=== PATIENT | male | born 1965 | race Two or more races ===

== ENCOUNTER 2021-03-01 20:40 | Inpatient (IN) | payer BC ==
[~2021-03-01] VITALS: Ht 160 cm; Wt 87.8 kg
[2021-03-01 20:50] VITALS: BP 104/61
[2021-03-01] MEDS ORDERED: NOREPINEPHRINE 8 MG/250ML KIT 250 ML IV ONE (20:52)
[2021-03-01] MEDS ORDERED: PROPOFOL 100 ML IV ONE (21:14)
[2021-03-01] MEDS: PROPOFOL 100 ML IV SCH (21:15)
[2021-03-01] MEDS ORDERED: LIDOCAINE 2%HCL (LOCAL ANESTH.) INJ 20ML MDV ONE (21:38)
[2021-03-01 21:55] VITALS: BP 105/62
[2021-03-01] MEDS ORDERED: ATROPINE SULF 1 MG/10ml SYR ONE (22:00)
[2021-03-01] MEDS ORDERED: ANGIOMAX 250 MG VIAL IV ONE (22:01)
[2021-03-01] MEDS ORDERED: EPINEPHrine HCL 1 MG/10 ML SYRG ONE (22:01)
[2021-03-01] MEDS ORDERED: niCARdipine 25 MG/10 ML VIAL IV ONE (22:01)
[2021-03-01] MEDS ORDERED: SODIUM CHL 0.9% 50 ML ONE (22:01)
[2021-03-01] MEDS ORDERED: IOHEXOL 350 MG/ML 100ML IJ ONE ×2 (22:14→22:53)
[2021-03-01 22:22] LABS: Basophils # (auto) 0.1 10 ^3/uL (0-0.2); Basophils % (auto) 0.6 % (0.0-2.0); Eosinophils # (auto) 0.2 10 ^3/uL (0-0.8); Eosinophils % (auto) 1.6 % (0.0-7.0); Hematocrit 47.5 % (41.0-53.0); Hemoglobin 14.7 g/dL (13.5-17.5); Lymphocytes # (auto) 6.4 10 ^3/uL (0.4-5.4); Lymphocytes % (auto) 53.6 % (10.0-50.0); Mean Corpuscular Hemoglobin 29.9 pg (28.0-32.0); Mean Corpuscular Hgb Conc. 30.9 g/dL (32.0-36.0); Mean Corpuscular Volume 96.8 fL (80.0-100.0); Monocytes # (auto) 0.6 10 ^3/uL (0-1.3); Monocytes % (auto) 5.3 % (0.0-12.0); Neutrophils # (auto) 4.6 10 ^3/uL (1.6-8.6); Neutrophils % (auto) 38.9 % (37.0-80.0); Nucleated Red Blood Cells % 0.3 %; Platelet Count (auto) 120 10^3/uL (140-450); Red Blood Cells 4.91 10^6/uL (4.5-5.90); Red Cell Distribution Width 15.3 % (11.8-14.3); White Blood Cell 11.9 10^3/uL (4.4-10.8)
[2021-03-01 22:29] LABS: Albumin 2.6 g/dL (3.4-5.0); BUN/Creatinine Ratio 10.8; Calcium 7.5 mg/dL (8.5-10.1); Potassium 3.9 mmol/L (3.5-5.1)
[2021-03-01 22:34] LABS: Bilirubin, Total 0.6 mg/dL (0.2-1.0); Total Protein 5.2 g/dL (6.4-8.2)
[2021-03-01 22:43] LABS: Lactic Acid w/Reflex 21.7 mmol/L (0.4-2.0)
[2021-03-01] MEDS ORDERED: fentaNYL Drip 2500mCg/250mlNS 250 ML IV ONE (22:50)
[2021-03-01 23:01] LABS: INR 1.46 (0.9-1.15)
[2021-03-01] MEDS ORDERED: TICAGRELOR 90 MG TAB ONE (23:12)
[2021-03-01] MEDS ORDERED: ASPirin 325 MG TAB ONE (23:12)
[2021-03-02] VITALS (101 sets, daily range): BP systolic 85–119; BP diastolic 51–75
[2021-03-02] MEDS ORDERED: SODIUM CHLORIDE 0.9% 1,000 ML IV ONE (00:15)
[2021-03-02] MEDS ORDERED: MORPHINE SULF INJ 2 MG/ML SYRINGE 1ML IV PRN (00:15)
[2021-03-02] MEDS: MIDAZOLAM DRIP 50 mg/50mL 50 ML IV SCH (00:15)
[2021-03-02] MEDS ORDERED: NITROGLYCERIN 0.4 MG SL TAB SL PRN (00:15)
[2021-03-02] MEDS: ASPirin-EC 81 mg tab PO SCH ×2 (01:01→10:11)
[2021-03-02] MEDS: MEROPENEM 1GM IVPB 100 ML IV SCH ×2 (01:01→10:11)
[2021-03-02] MEDS: NOREPINEPHRINE 8 MG/250ML KIT 250 ML IV SCH ×3 (01:02→21:00)
[2021-03-02] MEDS: PROPOFOL 100 ML IV SCH ×4 (01:06→17:58)
[2021-03-02] MEDS: fentaNYL Drip 2500mCg/250mlNS 250 ML IV SCH (01:08)
[2021-03-02 08:21] LABS: Basophils # (auto) 0 10 ^3/uL (0-0.2); Basophils % (auto) 0.1 % (0.0-2.0); Eosinophils # (auto) 0 10 ^3/uL (0-0.8); Hematocrit 48.6 % (41.0-53.0); Hemoglobin 16.3 g/dL (13.5-17.5); Lymphocytes # (auto) 0.7 10 ^3/uL (0.4-5.4); Lymphocytes % (auto) 4.9 % (10.0-50.0); Mean Corpuscular Hemoglobin 29.1 pg (28.0-32.0); Mean Corpuscular Hgb Conc. 33.5 g/dL (32.0-36.0); Mean Corpuscular Volume 87.1 fL (80.0-100.0); Monocytes # (auto) 1.3 10 ^3/uL (0-1.3); Monocytes % (auto) 8.5 % (0.0-12.0); Neutrophils % (auto) 86.5 % (37.0-80.0); Nucleated Red Blood Cells % 0.1 %; Platelet Count (auto) 219 10^3/uL (140-450); Red Blood Cells 5.59 10^6/uL (4.5-5.90); Red Cell Distribution Width 14.2 % (11.8-14.3)
[2021-03-02 08:30] LABS: Urine Bacteria NONE SEEN /hpf (None Seen); Urine Blood 3+ /uL (Negative); Urine Budding Yeast OCCASIONAL /hpf (None Seen); Urine Mucus FEW (None Seen); Urine Specific Gravity 1.044 (1.001-1.035); Urine WBC 18 /hpf (0 - 3)
[2021-03-02 08:39] LABS: Albumin 2.9 g/dL (3.4-5.0); Calcium 7.1 mg/dL (8.5-10.1); Potassium 4.9 mmol/L (3.5-5.1)
[2021-03-02 08:42] LABS: Alcohol, Urine < 3.0 mg/dL (0-10); Amphetamine Screen, Urine NEGATIVE (NEGATIVE); Barbiturate Scree,Urine NEGATIVE (NEGATIVE); Benzodiazephine Screen, Urine NEGATIVE (NEGATIVE); Bilirubin, Total 0.4 mg/dL (0.2-1.0); Cannabinoid Screen, Urine NEGATIVE (NEGATIVE); Cocaine Screen, Urine NEGATIVE (NEGATIVE); Opiate Scree,Urine NEGATIVE (NEGATIVE); Phencyclidine Screen, Urine NEGATIVE (NEGATIVE); Total Protein 5.6 g/dL (6.4-8.2)
[2021-03-02 09:42] LABS: Cholesterol 153 mg/dL (< 200); HDL Cholesterol 38 mg/dL (40-59); LDL Cholesterol 97 mg/dL (< 100); Triglycerides 111 mg/dL (< 150)
[2021-03-02] MEDS ORDERED: OPTISON 3ml Vial for INJ IV ONE (09:44)
[2021-03-02] MEDS ORDERED: PANTOPRAZOLE 40 MG/10 ML VIAL INJ IV SCH (10:00)
[2021-03-02] MEDS ORDERED: ENOXAPARIN SOD 40 MG/0.4 ML SYRINGE SC SCH (10:00)
[2021-03-02] MEDS: TICAGRELOR 90 MG TAB GT SCH ×2 (10:11→21:29)
[2021-03-02] MEDS ORDERED: SODIUM BICARBONATE 8.4 % INJ 50ML VIAL IV ONE (10:30)
[2021-03-02] MEDS ORDERED: LEV100T PO (10:38)
[2021-03-02] MEDS ORDERED: EPINEPHrine HCL 1 MG/10 ML SYRG IV ONE (12:42)
[2021-03-02] MEDS ORDERED: SODIUM BICARBONATE 8.4% INJ 50ML SYRINGE IV ONE (12:42)
[2021-03-02] MEDS ORDERED: Jevity 1.2 Cal/Fiber 1 Liter GT SCH (12:45)
[2021-03-02 15:58] LABS: Free T3 2.73 pg/mL (2.3-4.2); Free T4 (Free Thyroxine) 1.5 ng/dL (0.89-1.76)
[2021-03-02] MEDS: SODIUM CHLORIDE 0.9% 1,000 ML IV SCH (17:22)
[2021-03-02] MEDS ORDERED: VANCOMYCIN PER PHARMACY 0 MG IV SCH (23:30)
[2021-03-02] MEDS ORDERED: VANCOMYCIN 1GM/250ML 250 ML IV ONE (23:45)
[2021-03-03] VITALS (96 sets, daily range): BP systolic 92–144; BP diastolic 56–85
[2021-03-03] MEDS: MIDAZOLAM DRIP 50 mg/50mL 50 ML IV SCH (00:15)
[2021-03-03 03:47] LABS: Basophils # (auto) 0 10 ^3/uL (0-0.2); Basophils % (auto) 0.2 % (0.0-2.0); Eosinophils # (auto) 0 10 ^3/uL (0-0.8); Eosinophils % (auto) 0.2 % (0.0-7.0); Hematocrit 41.5 % (41.0-53.0); Hemoglobin 14.1 g/dL (13.5-17.5); Lymphocytes % (auto) 12.8 % (10.0-50.0); Mean Corpuscular Hemoglobin 29.5 pg (28.0-32.0); Mean Corpuscular Hgb Conc. 34.1 g/dL (32.0-36.0); Mean Corpuscular Volume 86.5 fL (80.0-100.0); Monocytes # (auto) 0.9 10 ^3/uL (0-1.3); Neutrophils # (auto) 5.7 10 ^3/uL (1.6-8.6); Neutrophils % (auto) 74.8 % (37.0-80.0); Nucleated Red Blood Cells % 0.1 %; Platelet Count (auto) 141 10^3/uL (140-450); Red Blood Cells 4.79 10^6/uL (4.5-5.90); Red Cell Distribution Width 14.3 % (11.8-14.3); White Blood Cell 7.6 10^3/uL (4.4-10.8)
[2021-03-03 04:08] LABS: Albumin 2.4 g/dL (3.4-5.0); Calcium 7.1 mg/dL (8.5-10.1); Potassium 3.9 mmol/L (3.5-5.1)
[2021-03-03 04:11] LABS: BUN/Creatinine Ratio 9.8
[2021-03-03] MEDS: fentaNYL Drip 2500mCg/250mlNS 250 ML IV SCH (04:20)
[2021-03-03 04:30] LABS: Bilirubin, Total 0.4 mg/dL (0.2-1.0)
[2021-03-03] MEDS: SODIUM CHLORIDE 0.9% 1,000 ML IV SCH ×2 (06:58→09:40)
[2021-03-03] MEDS: LEVOTHYROXINE SODIUM 100 MCG TAB PO SCH (07:46)
[2021-03-03] MEDS: TICAGRELOR 90 MG TAB GT SCH ×2 (09:39→21:21)
[2021-03-03] MEDS: PANTOPRAZOLE 40 MG/10 ML VIAL INJ IV SCH (09:40)
[2021-03-03] MEDS: ASPirin-EC 81 mg tab PO SCH (09:40)
[2021-03-03] MEDS: PROPOFOL 100 ML IV SCH (10:33)
[2021-03-03] MEDS ORDERED: cefTRIAXone 1GM/50ML D5W 50 ML IV ONE (10:45)
[2021-03-03 13:04] LABS: Magnesium 2.7 mg/dL (1.6-2.6); Phosphorus 6.5 mg/dL (2.5-4.90)
[2021-03-04] VITALS (41 sets, daily range): BP systolic 110–136; BP diastolic 61–82
[2021-03-04 04:18] LABS: Albumin 2.5 g/dL (3.4-5.0); Calcium 7.3 mg/dL (8.5-10.1); Potassium 3.7 mmol/L (3.5-5.1)
[2021-03-04 04:23] LABS: BUN/Creatinine Ratio 10.8; Bilirubin, Total 0.6 mg/dL (0.2-1.0); Total Protein 5.2 g/dL (6.4-8.2)
[2021-03-04] MEDS: LEVOTHYROXINE SODIUM 100 MCG TAB PO SCH (06:37)
[2021-03-04] MEDS: cefTRIAXone 1GM/50ML D5W 50 ML IV SCH (09:42)
[2021-03-04] MEDS: PANTOPRAZOLE 40 MG/10 ML VIAL INJ IV SCH (09:43)
[2021-03-04] MEDS: ASPirin-EC 81 mg tab PO SCH (09:44)
[2021-03-04] MEDS: TICAGRELOR 90 MG TAB GT SCH ×2 (09:44→22:16)
[2021-03-04] MEDS ORDERED: FUROSEMIDE 40 MG/4 ML VIAL IV ONE (10:00)
[2021-03-04] MEDS ORDERED: METOPROLOL TARTRATE 25 MG TAB PO ONE (10:30)
[2021-03-04 20:43] LABS: Protein, Urine 60.7 mg/dL (0.0-11.9)
[2021-03-04 21:33] LABS: Urine Bacteria FEW /hpf (None Seen); Urine Blood 2+ /uL (Negative); Urine Specific Gravity 1.015 (1.001-1.035); Urine WBC 8 /hpf (0 - 3)
[2021-03-04] MEDS: METOPROLOL TARTRATE 25 MG TAB PO SCH (22:16)
[2021-03-04] MEDS: ATORVASTATIN 20 MG TAB PO SCH (22:16)
[2021-03-05] VITALS (8 sets, daily range): BP systolic 104–139; BP diastolic 68–83
[2021-03-05 03:50] LABS: Basophils # (auto) 0 10 ^3/uL (0-0.2); Basophils % (auto) 0.2 % (0.0-2.0); Eosinophils # (auto) 0.2 10 ^3/uL (0-0.8); Eosinophils % (auto) 2.8 % (0.0-7.0); Hematocrit 32.7 % (41.0-53.0); Hemoglobin 11.6 g/dL (13.5-17.5); Lymphocytes # (auto) 0.7 10 ^3/uL (0.4-5.4); Lymphocytes % (auto) 12.3 % (10.0-50.0); Mean Corpuscular Hemoglobin 30.5 pg (28.0-32.0); Mean Corpuscular Hgb Conc. 35.5 g/dL (32.0-36.0); Mean Corpuscular Volume 85.7 fL (80.0-100.0); Monocytes # (auto) 0.7 10 ^3/uL (0-1.3); Monocytes % (auto) 11.9 % (0.0-12.0); Neutrophils # (auto) 4.4 10 ^3/uL (1.6-8.6); Neutrophils % (auto) 72.8 % (37.0-80.0); Platelet Count (auto) 109 10^3/uL (140-450); Red Blood Cells 3.81 10^6/uL (4.5-5.90)
[2021-03-05 04:08] LABS: Potassium 3.4 mmol/L (3.5-5.1)
[2021-03-05 04:20] LABS: Albumin 2.7 g/dL (3.4-5.0); BUN/Creatinine Ratio 13.5; Bilirubin, Total 0.7 mg/dL (0.2-1.0); Total Protein 5.6 g/dL (6.4-8.2)
[2021-03-05] MEDS: cefTRIAXone 1GM/50ML D5W 50 ML IV SCH (08:10)
[2021-03-05] MEDS: LEVOTHYROXINE SODIUM 100 MCG TAB PO SCH (08:11)
[2021-03-05] MEDS: METOPROLOL TARTRATE 25 MG TAB PO SCH ×2 (08:12→21:48)
[2021-03-05] MEDS: PANTOPRAZOLE 40 MG TAB PO SCH (08:12)
[2021-03-05] MEDS: ASPirin-EC 81 mg tab PO SCH (12:07)
[2021-03-05] MEDS ORDERED: POTASSIUM CHL 20 Meq TABLET PO ONE (14:15)
[2021-03-05] MEDS ORDERED: HYDROcodone-ACET 5/325MG TAB PO PRN (14:45)
[2021-03-05] MEDS: TICAGRELOR 90 MG TAB GT SCH ×2 (17:21→21:46)
[2021-03-05] MEDS: Ensure HIGH Protein Chocolate 8oz Bottle PO SCH (17:22)
[2021-03-05] MEDS: ATORVASTATIN 20 MG TAB PO SCH (21:47)
[2021-03-06 05:00] VITALS: BP 123/74
[2021-03-06 05:57] LABS: Basophils # (auto) 0 10 ^3/uL (0-0.2); Basophils % (auto) 0.3 % (0.0-2.0); Eosinophils # (auto) 0.3 10 ^3/uL (0-0.8); Eosinophils % (auto) 4.5 % (0.0-7.0); Hematocrit 32.2 % (41.0-53.0); Hemoglobin 11.3 g/dL (13.5-17.5); Lymphocytes # (auto) 0.7 10 ^3/uL (0.4-5.4); Lymphocytes % (auto) 13.2 % (10.0-50.0); Mean Corpuscular Hemoglobin 30.1 pg (28.0-32.0); Mean Corpuscular Hgb Conc. 35.2 g/dL (32.0-36.0); Mean Corpuscular Volume 85.5 fL (80.0-100.0); Monocytes # (auto) 0.7 10 ^3/uL (0-1.3); Monocytes % (auto) 12.5 % (0.0-12.0); Neutrophils # (auto) 3.9 10 ^3/uL (1.6-8.6); Neutrophils % (auto) 69.5 % (37.0-80.0); Nucleated Red Blood Cells % 0.1 %; Platelet Count (auto) 126 10^3/uL (140-450); Red Blood Cells 3.77 10^6/uL (4.5-5.90); Red Cell Distribution Width 13.4 % (11.8-14.3); White Blood Cell 5.6 10^3/uL (4.4-10.8)
[2021-03-06 06:19] LABS: Potassium 3.7 mmol/L (3.5-5.1)
[2021-03-06] MEDS: LEVOTHYROXINE SODIUM 100 MCG TAB PO SCH (06:24)
[2021-03-06 06:29] LABS: Albumin 2.7 g/dL (3.4-5.0); Bilirubin, Total 0.7 mg/dL (0.2-1.0); Calcium 8.1 mg/dL (8.5-10.1); Total Protein 5.8 g/dL (6.4-8.2)
[2021-03-06] MEDS: cefTRIAXone 1GM/50ML D5W 50 ML IV SCH (08:22)
[2021-03-06] MEDS: TICAGRELOR 90 MG TAB GT SCH ×2 (08:23→21:09)
[2021-03-06] MEDS: ASPirin-EC 81 mg tab PO SCH (08:23)
[2021-03-06] MEDS: PANTOPRAZOLE 40 MG TAB PO SCH (08:23)
[2021-03-06] MEDS: Ensure HIGH Protein Chocolate 8oz Bottle PO SCH ×3 (08:24→16:06)
[2021-03-06] MEDS: METOPROLOL TARTRATE 25 MG TAB PO SCH ×2 (08:25→21:09)
[2021-03-06 09:00] VITALS: BP 133/82
[2021-03-06 12:36] VITALS: BP 138/81
[2021-03-06 17:00] VITALS: BP 127/76
[2021-03-06] MEDS: ATORVASTATIN 20 MG TAB PO SCH (21:08)
[2021-03-06 22:00] VITALS: BP 129/80
[2021-03-07 05:00] VITALS: BP 119/78
[2021-03-07] MEDS: LEVOTHYROXINE SODIUM 100 MCG TAB PO SCH (06:22)
[2021-03-07 06:46] LABS: Basophils # (auto) 0 10 ^3/uL (0-0.2); Basophils % (auto) 0.2 % (0.0-2.0); Eosinophils # (auto) 0.4 10 ^3/uL (0-0.8); Eosinophils % (auto) 7.1 % (0.0-7.0); Hematocrit 34.5 % (41.0-53.0); Hemoglobin 11.9 g/dL (13.5-17.5); Lymphocytes # (auto) 0.8 10 ^3/uL (0.4-5.4); Lymphocytes % (auto) 14.1 % (10.0-50.0); Mean Corpuscular Hemoglobin 29.6 pg (28.0-32.0); Mean Corpuscular Hgb Conc. 34.6 g/dL (32.0-36.0); Mean Corpuscular Volume 85.7 fL (80.0-100.0); Monocytes # (auto) 0.7 10 ^3/uL (0-1.3); Monocytes % (auto) 13.3 % (0.0-12.0); Neutrophils # (auto) 3.6 10 ^3/uL (1.6-8.6); Neutrophils % (auto) 65.3 % (37.0-80.0); Nucleated Red Blood Cells % 0.1 %; Platelet Count (auto) 135 10^3/uL (140-450); Red Blood Cells 4.03 10^6/uL (4.5-5.90); Red Cell Distribution Width 13.6 % (11.8-14.3); White Blood Cell 5.5 10^3/uL (4.4-10.8)
[2021-03-07 07:08] LABS: Albumin 2.9 g/dL (3.4-5.0); Calcium 8.5 mg/dL (8.5-10.1); Potassium 4.1 mmol/L (3.5-5.1)
[2021-03-07 07:17] LABS: BUN/Creatinine Ratio 17.2; Bilirubin, Total 0.7 mg/dL (0.2-1.0); Total Protein 6.2 g/dL (6.4-8.2)
[2021-03-07] MEDS: Ensure HIGH Protein Chocolate 8oz Bottle PO SCH ×3 (07:50→18:05)
[2021-03-07 09:00] VITALS: BP 125/77
[2021-03-07] MEDS: cefTRIAXone 1GM/50ML D5W 50 ML IV SCH (09:02)
[2021-03-07] MEDS: ASPirin-EC 81 mg tab PO SCH (09:55)
[2021-03-07] MEDS: METOPROLOL TARTRATE 25 MG TAB PO SCH ×2 (09:56→22:07)
[2021-03-07] MEDS: PANTOPRAZOLE 40 MG TAB PO SCH (09:56)
[2021-03-07] MEDS ORDERED: TICA90TA GT (10:44)
[2021-03-07] MEDS ORDERED: MET25T PO (10:44)
[2021-03-07] MEDS ORDERED: PANT40T PO (10:44)
[2021-03-07] MEDS ORDERED: ASPI-543 PO (10:44)
[2021-03-07] MEDS ORDERED: ATOR40TA52 PO (10:44)
[2021-03-07 12:29] VITALS: BP 124/77
[2021-03-07] MEDS: TICAGRELOR 90 MG TAB GT SCH ×2 (13:52→21:36)
[2021-03-07 17:00] VITALS: BP 110/71
[2021-03-07] MEDS: ATORVASTATIN 20 MG TAB PO SCH (21:37)
[2021-03-07 22:00] VITALS: BP 135/91
[2021-03-08 05:00] VITALS: BP 127/78
[2021-03-08] MEDS: LEVOTHYROXINE SODIUM 100 MCG TAB PO SCH (06:20)
[2021-03-08 08:30] VITALS: BP 116/66
[2021-03-08] MEDS: Ensure HIGH Protein Chocolate 8oz Bottle PO SCH (08:49)
[2021-03-08] MEDS: cefTRIAXone 1GM/50ML D5W 50 ML IV SCH (08:52)
[2021-03-08] MEDS: ASPirin-EC 81 mg tab PO SCH (10:03)
[2021-03-08] MEDS: PANTOPRAZOLE 40 MG TAB PO SCH (10:04)
[2021-03-08] MEDS: METOPROLOL TARTRATE 25 MG TAB PO SCH (10:04)
[2021-03-08] MEDS: TICAGRELOR 90 MG TAB GT SCH (10:04)
[2021-03-08 10:24] LABS: Basophils # (auto) 0 10 ^3/uL (0-0.2); Basophils % (auto) 0.3 % (0.0-2.0); Eosinophils # (auto) 0.4 10 ^3/uL (0-0.8); Eosinophils % (auto) 5.4 % (0.0-7.0); Hemoglobin 12.6 g/dL (13.5-17.5); Lymphocytes # (auto) 0.7 10 ^3/uL (0.4-5.4); Lymphocytes % (auto) 10.4 % (10.0-50.0); Mean Corpuscular Hemoglobin 29.3 pg (28.0-32.0); Mean Corpuscular Volume 86.3 fL (80.0-100.0); Monocytes # (auto) 0.8 10 ^3/uL (0-1.3); Monocytes % (auto) 11.9 % (0.0-12.0); Neutrophils # (auto) 4.8 10 ^3/uL (1.6-8.6); Platelet Count (auto) 186 10^3/uL (140-450); Red Blood Cells 4.29 10^6/uL (4.5-5.90); Red Cell Distribution Width 13.1 % (11.8-14.3); White Blood Cell 6.6 10^3/uL (4.4-10.8)
[2021-03-08 10:39] LABS: Albumin 3.3 g/dL (3.4-5.0); Calcium 8.9 mg/dL (8.5-10.1); Potassium 4.1 mmol/L (3.5-5.1)
[2021-03-08 10:42] LABS: BUN/Creatinine Ratio 20.1; Bilirubin, Total 0.6 mg/dL (0.2-1.0); Total Protein 6.9 g/dL (6.4-8.2)
[2021-03-08] MEDS ORDERED: CEFD300C2 PO (11:18)
[2021-03-08 11:55] VITALS: BP 116/66
[2021-03-08 12:30] VITALS: BP 112/75
== END 2021-03-08 13:20 | disposition home or self-care (01) | DRG 853 ==
LOC: EDBD 20:40 → ER 20:44 → ICU WEST 23:49 → TELE-CENTR 03-05 04:04
PROVIDERS: ADMIT Specialist; ATTEND Internal Medicine
PROC: 4A023N7 Measurement of Cardiac Sampling and Pressure, Left Heart, Percutaneous Approach (ICD-10-PCS; principal; 2021-03-01)
PROC: 027136Z Dilation of Coronary Artery, Two Arteries with Three Drug-eluting Intraluminal Devices, Percutaneous Approach (ICD-10-PCS; 2021-03-01)
PROC: 02C03ZZ Extirpation of Matter from Coronary Artery, One Artery, Percutaneous Approach (ICD-10-PCS; 2021-03-01)
PROC: B211YZZ Fluoroscopy of Multiple Coronary Arteries using Other Contrast (ICD-10-PCS; 2021-03-01)
PROC: B215YZZ Fluoroscopy of Left Heart using Other Contrast (ICD-10-PCS; 2021-03-01)
PROC: B241ZZ3 Ultrasonography of Multiple Coronary Arteries, Intravascular (ICD-10-PCS; 2021-03-01)
PROC: B41F1ZZ Fluoroscopy of Right Lower Extremity Arteries using Low Osmolar Contrast (ICD-10-PCS; 2021-03-01)
PROC: 5A1945Z Respiratory Ventilation, 24-96 Consecutive Hours (ICD-10-PCS; 2021-03-01)
PROC: 0BH17EZ Insertion of Endotracheal Airway into Trachea, Via Natural or Artificial Opening (ICD-10-PCS; 2021-03-01)
PROC: 02H633Z Insertion of Infusion Device into Right Atrium, Percutaneous Approach (ICD-10-PCS; 2021-03-01)
PROC: 5A12012 Performance of Cardiac Output, Single, Manual (ICD-10-PCS; 2021-03-01)
DX: A41.81 Sepsis due to Enterococcus (principal); I21.09 ST elevation (STEMI) myocardial infarction involving other coronary artery of anterior wall; I46.9 Cardiac arrest, cause unspecified; I49.01 Ventricular fibrillation; I50.41 Acute combined systolic (congestive) and diastolic (congestive) heart failure; J96.00 Acute respiratory failure, unspecified whether with hypoxia or hypercapnia; N17.0 Acute kidney failure with tubular necrosis; E44.0 Moderate protein-calorie malnutrition; E87.2 Acidosis; R57.9 Shock, unspecified; E03.9 Hypothyroidism, unspecified; E11.21 Type 2 diabetes mellitus with diabetic nephropathy; E66.9 Obesity, unspecified; E78.5 Hyperlipidemia, unspecified; E87.6 Hypokalemia; K80.20 Calculus of gallbladder without cholecystitis without obstruction; N40.0 Benign prostatic hyperplasia without lower urinary tract symptoms; W08.XXXA Fall from other furniture, initial encounter; R31.9 Hematuria, unspecified; Z20.822 Contact with and (suspected) exposure to COVID-19; Z82.3 Family history of stroke; Z68.34 Body mass index [BMI] 34.0-34.9, adult; Z82.49 Family history of ischemic heart disease and other diseases of the circulatory system; Z86.73 Personal history of transient ischemic attack (TIA), and cerebral infarction without residual deficits; Z79.899 Other long term (current) drug therapy; Z88.0 Allergy status to penicillin; Z88.1 Allergy status to other antibiotic agents
CPT/HCPCS: 31500; 36415; 36556; 36600; 71045; 76705; 76775; 80053; 80061; 80202; 80307; 81001; 82306; 82570; 82805; 82962; 83036; 83605; 83735; 83880; 84100; 84156; 84300; 84439; 84443; 84481; 84484; 85025; 85379; 85610; 86850; 86900; 86901; 87040; 87077; 87081; 87086; 87186; 87426; 87493; 92950; 93005; 93306; 93970; 94002; 94003; 97116; 97163; 97530; 99152; 99153; 99291; C1874; C9113; G0378; J0696; J2185; J2704; Q9956

== ENCOUNTER 2021-03-17 14:49 | Inpatient (IN) | payer BC ==
[~2021-03-17] VITALS: Ht 160 cm; Wt 76.8 kg
[~2021-03-17 14:49] MED LIST: ASPI-543 PO; ATOR40TA52 PO; CEFD300C2 PO; LEV100T PO; MET25T PO; PANT40T PO; TICA90TA GT
[2021-03-17 16:18] LABS: Basophils # (auto) 0.1 10 ^3/uL (0-0.2); Basophils % (auto) 0.6 % (0.0-2.0); Eosinophils # (auto) 0.1 10 ^3/uL (0-0.8); Eosinophils % (auto) 0.9 % (0.0-7.0); Hematocrit 36.9 % (41.0-53.0); Hemoglobin 12.8 g/dL (13.5-17.5); Lymphocytes # (auto) 0.7 10 ^3/uL (0.4-5.4); Lymphocytes % (auto) 7.6 % (10.0-50.0); Mean Corpuscular Hemoglobin 29.7 pg (28.0-32.0); Mean Corpuscular Hgb Conc. 34.7 g/dL (32.0-36.0); Mean Corpuscular Volume 85.5 fL (80.0-100.0); Monocytes # (auto) 0.6 10 ^3/uL (0-1.3); Monocytes % (auto) 6.3 % (0.0-12.0); Neutrophils % (auto) 84.6 % (37.0-80.0); Red Blood Cells 4.32 10^6/uL (4.5-5.90); Red Cell Distribution Width 13.4 % (11.8-14.3); White Blood Cell 9.5 10^3/uL (4.4-10.8)
[2021-03-17] MEDS ORDERED: ASPI-543 PO (16:27)
[2021-03-17] MEDS ORDERED: METO25TA5 PO (16:27)
[2021-03-17] MEDS ORDERED: ATOR40TA52 PO (16:27)
[2021-03-17] MEDS ORDERED: PANT40TA2 PO (16:27)
[2021-03-17] MEDS ORDERED: TICA90TA PO (16:27)
[2021-03-17] MEDS ORDERED: LEVO100T8 PO (16:27)
[2021-03-17] MEDS ORDERED: CEFD300C2 PO (16:27)
[2021-03-17 16:31] LABS: Albumin 3.5 g/dL (3.4-5.0); Calcium 8.8 mg/dL (8.5-10.1); Potassium 3.6 mmol/L (3.5-5.1)
[2021-03-17 16:37] LABS: Bilirubin, Total 0.6 mg/dL (0.2-1.0); Total Protein 7.4 g/dL (6.4-8.2)
[2021-03-17] MEDS ORDERED: NITROGLYCERIN 0.4 MG SL TAB SL PRN (18:00)
[2021-03-17] MEDS ORDERED: MORPHINE SULFATE INJECTION 2 MG/ML SYRG IV PRN (18:00)
[2021-03-17] MEDS ORDERED: ONDANSETRON HCL 4 MG/2 ML VIAL IV PRN (18:00)
[2021-03-17] MEDS ORDERED: DEXTROSE (50%) 50ML SYRG IV PRN (18:15)
[2021-03-17 20:58] VITALS: BP 106/79
[2021-03-17] MEDS: InsuLIN REG 1unit/0.01ml Soln (100units/ml) SC SCH (22:00)
[2021-03-17] MEDS: ACCU-CHEK COMFORT CURVE STRIP VI SCH (22:00)
[2021-03-17 22:18] VITALS: BP 106/79
[2021-03-17] MEDS: METOPROLOL TARTRATE 25 MG TAB PO SCH (22:25)
[2021-03-17] MEDS: PANTOPRAZOLE 40 MG TAB PO SCH (22:25)
[2021-03-17] MEDS: ENOXAPARIN SOD 80 MG/0.8ML SYRINGE SC SCH (22:26)
[2021-03-17] MEDS: HYDROcodone-ACET 5/325MG TAB PO PRN (23:12)
[2021-03-18 05:03] VITALS: BP 113/71
[2021-03-18 06:01] LABS: Basophils # (auto) 0 10 ^3/uL (0-0.2); Basophils % (auto) 0.5 % (0.0-2.0); Eosinophils # (auto) 0.2 10 ^3/uL (0-0.8); Eosinophils % (auto) 3.1 % (0.0-7.0); Hematocrit 36.7 % (41.0-53.0); Hemoglobin 12.6 g/dL (13.5-17.5); Lymphocytes # (auto) 0.8 10 ^3/uL (0.4-5.4); Lymphocytes % (auto) 14.7 % (10.0-50.0); Mean Corpuscular Hemoglobin 29.8 pg (28.0-32.0); Mean Corpuscular Hgb Conc. 34.3 g/dL (32.0-36.0); Mean Corpuscular Volume 87.1 fL (80.0-100.0); Monocytes # (auto) 0.6 10 ^3/uL (0-1.3); Monocytes % (auto) 10.7 % (0.0-12.0); Neutrophils # (auto) 3.7 10 ^3/uL (1.6-8.6); Red Blood Cells 4.22 10^6/uL (4.5-5.90); Red Cell Distribution Width 13.8 % (11.8-14.3); White Blood Cell 5.3 10^3/uL (4.4-10.8)
[2021-03-18 06:24] LABS: Albumin 3.2 g/dL (3.4-5.0); Calcium 8.5 mg/dL (8.5-10.1); Potassium 3.8 mmol/L (3.5-5.1)
[2021-03-18 06:29] LABS: BUN/Creatinine Ratio 27.5; Bilirubin, Total 0.5 mg/dL (0.2-1.0); Total Protein 6.8 g/dL (6.4-8.2)
[2021-03-18] MEDS: LEVOTHYROXINE SODIUM 100 MCG TAB PO SCH (06:31)
[2021-03-18] MEDS: METOPROLOL TARTRATE 25 MG TAB PO SCH ×3 (06:31→21:46)
[2021-03-18] MEDS: ACCU-CHEK COMFORT CURVE STRIP VI SCH ×4 (06:32→21:46)
[2021-03-18] MEDS: InsuLIN REG 1unit/0.01ml Soln (100units/ml) SC SCH ×4 (06:32→21:46)
[2021-03-18] MEDS: HYDROcodone-ACET 5/325MG TAB PO PRN (06:38)
[2021-03-18 08:00] VITALS: BP 108/72
[2021-03-18 09:00] VITALS: BP 108/72
[2021-03-18] MEDS: ASPirin 81 mg TAB PO SCH (09:33)
[2021-03-18] MEDS: ENOXAPARIN SOD 80 MG/0.8ML SYRINGE SC SCH ×2 (09:34→21:41)
[2021-03-18] MEDS: PANTOPRAZOLE 40 MG TAB PO SCH ×2 (09:34→21:42)
[2021-03-18 12:45] VITALS: BP 126/83
[2021-03-18 17:00] VITALS: BP 99/65
[2021-03-18 21:20] VITALS: BP 118/70
[2021-03-19] MEDS ORDERED: TICAGRELOR 90 MG TAB PO ONE (00:30)
[2021-03-19 03:21] VITALS: BP 111/82
[2021-03-19 05:00] VITALS: BP 113/66
[2021-03-19] MEDS: METOPROLOL TARTRATE 25 MG TAB PO SCH ×2 (06:00→14:38)
[2021-03-19] MEDS: LEVOTHYROXINE SODIUM 100 MCG TAB PO SCH (06:44)
[2021-03-19] MEDS: InsuLIN REG 1unit/0.01ml Soln (100units/ml) SC SCH ×2 (06:45→11:30)
[2021-03-19] MEDS: ACCU-CHEK COMFORT CURVE STRIP VI SCH ×2 (06:45→11:30)
[2021-03-19 08:00] VITALS: BP 119/75
[2021-03-19 08:33] VITALS: BP 119/75
[2021-03-19] MEDS ORDERED: TICAGRELOR 90 MG TAB PO SCH (10:00)
[2021-03-19] MEDS: ASPirin 81 mg TAB PO SCH (10:38)
[2021-03-19] MEDS: PANTOPRAZOLE 40 MG TAB PO SCH (10:38)
[2021-03-19 12:46] VITALS: BP 137/81
== END 2021-03-19 16:30 | disposition home or self-care (01) | DRG 395 ==
LOC: ER 14:49 → TELE 17:55 → TELE-WESTW 19:35
PROVIDERS: ADMIT Specialist; ATTEND Specialist
DX: K52.1 Toxic gastroenteritis and colitis (principal); I25.10 Atherosclerotic heart disease of native coronary artery without angina pectoris; T36.95XA Adverse effect of unspecified systemic antibiotic, initial encounter; Z20.822 Contact with and (suspected) exposure to COVID-19; M54.9 Dorsalgia, unspecified; Z88.1 Allergy status to other antibiotic agents; Z88.0 Allergy status to penicillin; Z88.8 Allergy status to other drugs, medicaments and biological substances; I25.2 Old myocardial infarction; Y92.89 Other specified places as the place of occurrence of the external cause; Z82.3 Family history of stroke; Z82.49 Family history of ischemic heart disease and other diseases of the circulatory system; Z86.73 Personal history of transient ischemic attack (TIA), and cerebral infarction without residual deficits
CPT/HCPCS: 36415; 71045; 78582; 80053; 82270; 83880; 84484; 85025; 85379; 87081; 87426; 87493; 93005; 96372; G0378